=== PATIENT | female | born 1945 | race Caucasian/White ===

== ENCOUNTER 2019-01-13 13:42 | Emergency (ER) | payer OTHER ==
--- NOTE | 2019-01-13 13:49 | EDPHY ---
HPI/HX/ROS/PE/MDM <Eduardo Yung - Last Filed: 01/13/19 16:03> - Data Points Imaging: I viewed and interpreted images myself <Connie Joya - Last Filed: 01/13/19 16:27> Narrative: CHIEF COMPLAINT: Right hip pain HPI: This patient is a 73 year old female with history of [place]'s disease, diabetes , hypothyroidism, and hyperlipidemia. She presents today with atraumatic right hip pain which began on Saturday afternoon. This is exacerbated by movement and she has difficultly with activities of daily living including driving and walking. She has tried ibuprofen and Aleve without relief. The pain is somewhat relieved when she is lying down. She denies any recent falls or trauma. She notes that she has history of a pulled hamstring which presented with a somewhat similar, but less severe, discomfort. She denies any back pain. No numbness, paresthesias, weakness, or swelling in her extremities. She does take chronic steroids for her [place]'s disease but denies any recent changes in her medication regimen. No fever, chest pain, shortness of breath, or other associated symptoms. REVIEW OF SYSTEMS: A comprehensive 10 system review of systems is otherwise negative aside from elements mentioned in the history of present illness and medical decision making. PMH: DM type II. Cam's disease. Hypothyroid. Hyperlipidemia. SOCIAL HISTORY: Retired. Lives in [place]. Does not abuse tobacco, drugs, or alcohol. PHYSICAL EXAM: General:Patient is alert, in no acute distress. ENT:Eyes are normal to inspection. ENT inspection normal. Neck: Normal inspection. Full range of motion. Respiratory:No respiratory distress. Breath sounds normal bilaterally. Cardiovascular: Regular rate and rhythm. Strong peripheral pulses. Normal cap refill. Abdomen:The abdomen is nontender to palpation. There are no peritoneal signs. There are normal bowel sounds. Back: Normal to inspection. Tenderness over right buttock region. Skin: Normal color. No rash. Warm and dry. Extremities: Normal appearance. Full range of motion. Neuro: Oriented x3. Normal motor function. Normal sensory function. (Eduardo Yung) ED Course: This 73 y/o female presents with atraumatic right hip pain. She has reproducible discomfort over the left buttock area. Plan for x-ray of lumbar spine and right hip/femur. Plan for labs including CBC, chemistries. (Eduardo Yung) 3:30 p.m.: I assumed care of this patient at shift change. She presents with right buttock pain, atraumatic. X-rays are unremarkable. She has been given Vicodin and Phenergan. The plan is for recheck after medications and discharge her home if she is feeling better. 4:15 p.m.: Feels better, daughter is present, would like to go home. On exam, she has point tenderness over the right ischial tuberosity. This is in a similar location to a previous injury, according to the patient. Patient reassured there is a possibility of sciatica also discussed with the patient, as she has pain radiating down the right lower extremity at times. Right straight leg raise is negative and no lumbar tenderness. Ambulates with a steady gait. Patient requests tramadol. Rx written. (Connie Joya) - Data Points Imaging Results: Imaging Impressions Lumbar Spine X-Ray 01/13/19 14:15 Impression: 1. No acute compression fracture. 2. Grade 1 spondylolisthesis and degenerative disk disease at L3-L4 and L4-L5. Laboratory Results: Laboratory Results 01/13/19 13:50 01/13/19 13:50 01/13/19 01/13/19 13:50 13:50 WBC 12.59 10^3/uL H 10^3/uL (3.80-9.50) RBC 5.68 10^6/uL H 10^6/uL (4.18-5.33) Hgb 16.9 g/dL H g/dL (12.6-16.3) Hct 52.3 % H % (38.0-47.0) MCV 92.1 fL fL (81.5-99.8) MCH 29.8 pg pg (27.9-34.1) MCHC 32.3 g/dL L g/dL (32.4-36.7) RDW 14.8 % % (11.5-15.2) Plt Count 349 10^3/uL 10^3/uL (150-400) MPV 10.1 fL fL (8.7-11.7) Neut % (Auto) 71.1 % % (39.3-74.2) Lymph % (Auto) 17.4 % % (15.0-45.0) Mcleod % (Auto) 9.0 % % (4.5-13.0) Eos % (Auto) 1.3 % % (0.6-7.6) Baso % (Auto) 0.6 % % (0.3-1.7) Nucleat RBC Rel Count 0.0 % % (0.0-0.2) Absolute Neuts (auto) 8.96 10^3/uL H 10^3/uL (1.70-6.50) Absolute Lymphs (auto) 2.19 10^3/uL 10^3/uL (1.00-3.00) Absolute Monos (auto) 1.13 10^3/uL H 10^3/uL (0.30-0.80) Absolute Eos (auto) 0.16 10^3/uL 10^3/uL (0.03-0.40) Absolute Basos (auto) 0.08 10^3/uL 10^3/uL (0.02-0.10) Absolute Nucleated RBC 0.00 10^3/uL 10^3/uL (0-0.01) Immature Gran % 0.6 % % (0.0-1.1) Immature Gran # 0.07 10^3/uL 10^3/uL (0.00-0.10) Sodium 140 mEq/L mEq/L (135-145) Potassium 4.3 mEq/L mEq/L (3.5-5.2) Chloride 103 mEq/L mEq/L (97-110) Carbon Dioxide 23 mEq/l mEq/l (22-31) Anion Gap 14 mEq/L mEq/L (6-14) BUN 19 mg/dL mg/dL (7-23) Creatinine 0.9 mg/dL mg/dL (0.6-1.0) Estimated GFR > 60 Glucose 109 mg/dL H mg/dL (70-100) Calcium 10.0 mg/dL mg/dL (8.5-10.4) Specimen Hemolysis 125 Medications Given: Discontinued Medications Hydrocodone Bitart/Acetaminophen (Stewart 5/325) 1 tab PO EDNOW ONE Stop: 01/13/19 15:24 Last Admin: 01/13/19 15:39 Dose: 1 tab Promethazine HCl (Phenergan) 25 mg PO EDNOW ONE Stop: 01/13/19 15:24 Last Admin: 01/13/19 15:39 Dose: 25 mg General <Eduardo Yung - Last Filed: 01/13/19 16:03> <Connie Joya - Last Filed: 01/13/19 16:27> Time Seen by Provider: 01/13/19 13:44 Initial Vital Signs: Initial Vital Signs Temperature (C) 36.7 C 01/13/19 13:49 Heart Rate 90 01/13/19 13:49 Respiratory Rate 16 01/13/19 13:49 Blood Pressure 141/74 H 01/13/19 13:49 O2 Sat (%) 93 01/13/19 13:49 O2 Delivery Mode Room Air Allergies/Adverse Reactions: codeine [Codeine] Allergy (Verified 01/13/19 13:49) GI oxycodone HCl [From OxyContin] Allergy (Verified 01/13/19 13:49) Vomiting sulfamethoxazole [From Bactrim] Allergy (Verified 01/13/19 13:49) FEELS WOOZY tobramycin Allergy (Verified 01/13/19 13:49) Rash trimethoprim [From Bactrim] Allergy (Verified 01/13/19 13:49) FEELS WOOZY ENVIRONMENTAL Allergy (Mild, Uncoded 09/25/13 15:07) NASAL CONGESTION/WATERY EYES Home Medications: Medication Instructions Recorded Aspirin [Aspirin 81mg (OTC)] 162 mg PO DAILY 02/16/13 Atorvastatin Calcium [Lipitor] 40 mg PO HS 02/16/13 Estradiol [Estradiol 1 MG (RX)] 1 mg PO Q2D@2100 02/16/13 Fludrocortisone Acetate [Florinef 0.1 mg PO DAILY 02/16/13 0.1 MG (RX)] LORazepam [Ativan 1 mg (RX)] 1 - 2 mg PO HS PRN 02/16/13 Levothyroxine [Synthroid 100 mcg 100 mcg PO HS 02/16/13 (RX)] Vits A,C,E/Lutein/Minerals 1 each PO DAILY 02/16/13 [Ocuvite Tablet] metFORMIN HCL [Glucophage 500 mg 500 mg PO BIDMEAL 02/16/13 (RX)] Hydrocortisone Sod Succinate 100 mg IM DAILY PRN 02/17/13 [soluCORTEF] Hydrocortisone [Cortef 10 mg (RX)] 10 mg PO 08,12 02/17/13 Estradiol [Estradiol 1 MG (RX)] 0.5 mg PO Q2D@2100 02/23/13 Herbals/Supplements -Info Only 1 each PO AD 09/24/13 Loratadine [Claritin 10 mg] 10 mg PO HS 09/25/13 Promethazine HCl [Phenergan 25mg 25 mg PO Q6 PRN #20 tab 07/22/14 (RX)] Hydrocortisone [Cortef] 5 mg PO DAILY@16 02/16/15 Ascorbic Acid [Vitamin C] 500 mg PO DAILY 02/22/15 Ibuprofen [Motrin] 200 - 400 mg PO BID PRN 02/22/15 Multivitamins [Tab-A-Ewelina] 1 each PO DAILY 02/22/15 traMADol [Ultram 50 mg (*)] 50 mg PO Q4 PRN #10 tab 01/13/19 Departure <Eduardo Yung - Last Filed: 01/13/19 16:03> <Connie Joya - Last Filed: 01/13/19 16:27> - Departure Disposition: Home, Routine, Self-Care Clinical Impression: Sciatica Qualifiers: Laterality: right Qualified Code(s): M54.31 - Sciatica, right side Condition: Good Instructions: Sciatica (ED) Additional Instructions: Ibuprofen 600 mg 3 times daily while the pain persists. Take tramadol as needed for pain. Follow-up with your primary doctor and/or floor specialist within one week. Return to the ED for worsening pain, fever, inability to walk or other concerns. Referrals: Elsa Cates MD [Medical Doctor] - As per Instructions Kailyn Gonzalez MD [Medical Doctor] - As per Instructions Prescriptions: traMADol [Ultram 50 mg (*)] 50 mg PO Q4 PRN #10 tab PRN Reason: pain Report Scribed for: Eduardo Yung Report Scribed by: Bridgett Hubbard Date of Report: 01/13/19 Time of Report: 15:14 Physician Review and Approval Statement: Portions of this note were transcribed by an ED scribe. I personally performed the history, physical exam, and medical decision making; and confirm the accuracy of the information in the transcribed note. <Eduardo Yung - Last Filed: 01/13/19 16:03>
[2019-01-13] MEDS ORDERED: PROMETHAZINE HCL 25 MG TAB PO ONE (15:23)
[2019-01-13] MEDS ORDERED: HYDROCODONE/APAP 5/325 TAB PO ONE (15:23)
[2019-01-13 16:17] LABS: PLATELET COUNT 349 10^3/uL (150-400)
[2019-01-13 16:22] VITALS: BP 139/70
== END 2019-01-13 16:40 | disposition home or self-care (01) ==
LOC: EDUNIT#
DX: M54.31 Sciatica, right side (principal); E27.1 Primary adrenocortical insufficiency; E03.9 Hypothyroidism, unspecified; E78.5 Hyperlipidemia, unspecified

== ENCOUNTER 2019-02-25 07:05 | Inpatient (IN) | payer OTHER ==
[2019-02-25] MEDS ORDERED: ACETAMINOPHEN 500 MG TAB PO ONE (07:22)
[2019-02-25] MEDS ORDERED: ceFAZolin 2 GM/DEXTROSE 100 ML IV ONE (07:22)
[2019-02-25] MEDS ORDERED: GABAPENTIN 300 MG CAP PO ONE (07:22)
[2019-02-25] MEDS ORDERED: LR 1,000 ML IV ONE (07:24)
[2019-02-25] MEDS ORDERED: GENTAMICIN SULFATE 80 MG/2 ML VIAL ONE (08:10)
[2019-02-25] MEDS ORDERED: BUPIVACAINE/EPI 0.25% 30 ML SDV ONE (08:10)
[2019-02-25] MEDS ORDERED: THROMBIN (BOVINE) 20,000 UNIT VIAL TP ONE (08:10)
[2019-02-25] MEDS ORDERED: CHLORHEXIDINE GLUC HIBICLENS 118 ML BTL TP ONE (08:10)
--- NOTE | 2019-02-25 08:13 | PDANEPAE ---
ANE Past Medical History - Cardiovascular History Hx Hypertension: No Hx Arrhythmias: No Hx Chest Pain: No Hx Coronary Artery / Peripheral Vascular Disease: Yes Hx CHF / Valvular Disease: No Hx Palpitations: No Cardiovascular History Comment: Family HX severe CAD. - Pulmonary History Hx COPD: No Hx Asthma/Reactive Airway Disease: No Hx Recent Upper Respiratory Infection: No Hx Oxygen in Use at Home: No Hx Sleep Apnea: No Sleep Apnea Screening Result - Last Documented: Negative - Neurologic History Hx Cerebrovascular Accident: No Hx Seizures: No Hx Dementia: No - Endocrine History Hx Diabetes: Yes Endocrine History Comment: Type 2-metformin. Hypothyroid, HX of Graves disease. Cecil's disease. - Renal History Hx Renal Disorders: No Renal History Comment: Chronic UTI'S, last 12/25. - Liver History Hx Hepatic Disorders: No - Neurological & Psychiatric Hx Hx Neurological and Psychiatric Disorders: Yes Neurological / Psychiatric History Comment: Situational depression 11/25-since resolved. back causes foot drop - Cancer History Hx Cancer: Yes Cancer History Comment: Squamous leg-removed. Basal face-removed. - Congenital Disorder History Hx Congenital Disorders: Yes Congenital History Comment: See endocrine HX. Spina bifida. 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 Bursitis both hips, steroid inj in past. - Chronic Pain History Chronic Pain: Yes (bursitis both hips.) - Surgical History Prior Surgeries: T&A as child. 1959-partial thyroidectomy. 1981-total hyst. 1969 -L breast lumpectomy; unsuccesfull bilateral breast reconstruction twice. 1984- original breast implants removed and new ones placed.2011-GB removed. 2012- bilateral breast reconstruction. abdominoplasty ANE Review of Systems Review of Systems: - Exercise capacity METS (RN): 4 METS ANE Patient History - Allergies Allergies/Adverse Reactions: codeine [Codeine] Allergy (Verified 01/13/19 13:49) GI oxycodone HCl [From OxyContin] Allergy (Verified 01/13/19 13:49) Vomiting sulfamethoxazole [From Bactrim] Allergy (Verified 01/13/19 13:49) FEELS WOOZY tobramycin Allergy (Verified 01/13/19 13:49) Rash trimethoprim [From Bactrim] Allergy (Verified 01/13/19 13:49) FEELS WOOZY ENVIRONMENTAL Allergy (Mild, Uncoded 09/25/13 15:07) NASAL CONGESTION/WATERY EYES - Home Medications Home Medications: Aspirin [Aspirin 81mg (OTC)] 162 mg PO HS 02/16/13 [Last Taken 02/23/15] Atorvastatin Calcium [Lipitor] 80 mg PO HS 02/16/13 [Last Taken 03/01/15 20:00] Fludrocortisone Acetate [Florinef 0.1 MG (RX)] 0.1 mg PO DAILY 02/16/13 [Last Taken 03/02/15 06:15] LORazepam [Ativan 1 mg (RX)] 1 - 2 mg PO HS PRN 02/16/13 [Last Taken 03/01/15 23 :00] metFORMIN HCL [Glucophage 500 mg (RX)] 500 mg PO BIDMEAL 02/16/13 [Last Taken 20:00] Hydrocortisone Sod Succinate [soluCORTEF] 100 mg IM DAILY PRN 02/17/13 [Last Taken 09/27/13] Hydrocortisone [Cortef 10 mg (RX)] 10 mg PO TIDMEAL 02/17/13 [Last Taken 06:15] Estradiol [Estradiol 1 MG (RX)] 0.5 mg PO HS 02/23/13 [Last Taken 03/01/15 20:00 ] Loratadine [Claritin 10 mg] 10 mg PO DAILY 09/25/13 [Last Taken 02/16/15] Hydrocortisone [Cortef] 10 mg PO DAILY PRN 02/16/15 [Last Taken 02/28/15 16:00] Ascorbic Acid [Vitamin C 500 mg (*)] 1,000 mg PO DAILY 02/11/19 [Last Taken Unknown] C/E/Zn/Cu/OM3/DHA/EPA/LUT/ZEAX [Preservision Areds 2 Softgel] 1 each PO BID 01/27 [Last Taken Unknown] Gabapentin [Neurontin 300 MG (*)] 300 mg PO BID 02/11/19 [Last Taken Unknown] Levothyroxine [Synthroid 112 mcg (*)] 112 mcg PO HS 02/11/19 [Last Taken Unknown ] Meloxicam 7.5 - 15 mg PO DAILY 02/11/19 [Last Taken Unknown] Multivitamins [Multivitamin (*)] 1 each PO DAILY 02/11/19 [Last Taken Unknown] OLANZapine [Zyprexa] 5 mg PO HS 02/11/19 [Last Taken Unknown] [place]-3 Fatty Acids [Fish Oil 1000 mg (*)] 1,000 mg PO DAILY 02/11/19 [Last Taken Unknown] buPROPion XL [Wellbutrin Xl] 300 mg PO DAILY 02/11/19 [Last Taken Unknown] - Smoking Hx Smoking Status: Never smoked - Family Anes Hx Family Hx Anesthesia Complications: none ANE Labs/Vital Signs - Vital Signs Vital Signs: reviewed preoperatively; see RN documention for details Height: 162.56 cm Weight: 74.843 kg ANE Physical Exam - Airway Neck exam: decreased ROM Mallampati Score: Class 2 Mouth exam: normal dental/mouth exam - Pulmonary Pulmonary: clear to auscultation - Cardiovascular Cardiovascular: regular rate and rhythym - ASA Status ASA Status: III ANE Anesthesia Plan Anesthesia Plan: general endotracheal anesthesia Lines/Monitors: arterial line
[2019-02-25] MEDS ORDERED: PROPOFOL 200 MG/20 ML VIAL ONE (08:18)
[2019-02-25] MEDS ORDERED: PROPOFOL/EMULSION 500 MG/50 ML BOTTLE IV ONE ×2 (08:18→13:37)
[2019-02-25] MEDS ORDERED: REMIFENTANIL HCL 1 MG VIAL ONE ×2 (08:20→13:37)
[2019-02-25] MEDS ORDERED: fentaNYL 100 MCG/2 ML INJ ONE ×2 (08:20→14:56)
[2019-02-25 08:21] LABS: PLATELET COUNT 283 10^3/uL (150-400)
[2019-02-25] MEDS ORDERED: ROCURONIUM 50 MG/5 ML VIAL ONE (08:23)
[2019-02-25] MEDS ORDERED: PHENYLEPHRINE 10 MG/ML SDV ONE (08:25)
[2019-02-25] MEDS ORDERED: PETROLAT,WHT/MIN OIL/SOD CHL 3.5 GM OPHT.OINT ONE (08:28)
[2019-02-25 08:33] LABS: INR 1.14 (0.83-1.16); PROTIME(PATIENT) 14.1 SEC (12.0-15.0)
[2019-02-25] MEDS ORDERED: RANITIDINE 50 MG/2 ML VIAL ONE ×2 (09:05→11:26)
[2019-02-25] MEDS ORDERED: GLYCOPYRROLATE 0.2 MG/1 ML VIAL ONE (09:05)
--- NOTE | 2019-02-25 09:21 | PDHPUP ---
History & Physical Update H&P update statement: This history and physical update is based on an assessment of the patient which was completed after admission or registration (within 24 hours), but prior to the surgery/procedure. H&P update: H&P reviewed & patient examined, no change in patient's condition since H&P completed
[2019-02-25] MEDS ORDERED: HYDROCORTISONE 100 MG/2 ML VIAL ONE (10:09)
[2019-02-25] MEDS ORDERED: PHENYLEPHRINE HCL 100 MCG/ML SYR ONE (10:11)
[2019-02-25] MEDS ORDERED: ONDANSETRON 4 MG/2 ML VIAL IVP PRN ×2 (10:48→15:26)
[2019-02-25] MEDS ORDERED: HYDROmorphONE/DILAUDID 1 MG/ML INJ IVP PRN ×2 (10:48→15:26)
[2019-02-25] MEDS ORDERED: BISACODYL 10 MG SUPP PR PRN (10:48)
[2019-02-25] MEDS ORDERED: diphenhydrAMINE 25 MG CAP PO PRN (10:48)
[2019-02-25] MEDS ORDERED: POLYETHYLENE GLYCOL 3350 17 GM PKT PO PRN (10:48)
[2019-02-25] MEDS ORDERED: MAGNESIUM HYDROXIDE 30 ML UDCUP PO PRN (10:48)
[2019-02-25] MEDS ORDERED: LACTULOSE 20 GM/30 ML UDCUP PO PRN (10:48)
[2019-02-25] MEDS ORDERED: HYDROmorphONE/DILAUDID 2 MG TAB PO PRN (10:52)
[2019-02-25] MEDS ORDERED: NS 1,000 ML IV SCH (11:00)
--- NOTE | 2019-02-25 13:20 | PDMN ---
Medical Necessity Medical necessity: [facility] IP only surgery; cpt 93440 L3/5 TLIF
[2019-02-25] MEDS ORDERED: ceFAZolin 1 GM VIAL ONE ×2 (14:03→14:04)
[2019-02-25] MEDS ORDERED: NALOXONE HCL 0.4 MG/ML INJ IVP PRN (15:26)
[2019-02-25] MEDS ORDERED: DEXAMETHASONE 4 MG/ML VIAL IVP PRN (15:26)
[2019-02-25] MEDS ORDERED: LABETALOL HCL 5 MG/ML 20 ML MDV IVP PRN (15:26)
[2019-02-25] MEDS ORDERED: ALBUTEROL 3 ML DEYVIAL IH PRN (15:26)
[2019-02-25] MEDS ORDERED: PROMETHAZINE HCL 25 MG/ML INJ IVP PRN (15:26)
[2019-02-25] MEDS ORDERED: LR 500 ML IV PRN (15:26)
[2019-02-25] MEDS ORDERED: fentaNYL 100 MCG/2 ML INJ IVP PRN (15:26)
--- NOTE | 2019-02-25 15:27 | POSTANESTH ---
Post Anesthetic Evaluation Cardiovascular Status: Normal, Stable Respiratory Status: Normal, Stable Level of Consciousness/Mental Status: Mildly Sleepy, Arousable Pain Control: Adequate, Prn Tx Ordered Nausea/Vomiting Control: Adequate, Prn Tx Ordered Complications Possibly Related to Anesthesia: None Noted
--- NOTE | 2019-02-25 15:32 | POSTOPPROG ---
Post Op Note Date of Operation: 02/25/19 Surgeon: Beverly Lynn Foxing Cutting Machine Operator: Missy Romano PA-C Anesthesia: GET(General Endotracheal) Pre-op Diagnosis: Lumbar stenosis Post-op Diagnosis: Lumbar stenosis Procedure: Transforaminal lumbar interbody fusion at L3-L5 Inf/Abcess present in the surg proc area at time of surgery?: No Depth: Deep Incisional (Fascial) EBL: 100-500 Drains: John Hamilton Plan Plan: 73 yo female s/p TLIF at L3-L5 - neuro checks - pain control - SARI drain x 1 - wear brace when out of bed - postop L-spine x-rays tomorrow - PT/OT - [place]'s disease, will double home dose of solu-cortef for the next 3 days 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 Alert Following commands, NEGRO Right DF weakness 4/5
--- NOTE | 2019-02-25 15:51 | GOP ---
[f rep st] OPERATIVE REPORT DATE OF OPERATION: 02/25/2019 SURGEON: Beverly Lynn DO NEUROSURGEON: Beverly Lynn DO [employer]EMAN: BULL Gomes PREOPERATIVE DIAGNOSIS: 1. Spondylolisthesis. 2. Stenosis. 3. Spondylosis. 4. Herniated nucleus pulposus. 5. Footdrop. 6. Radiculopathy. 7. Myelopathy. POSTOPERATIVE DIAGNOSIS: 1. Spondylolisthesis. 2. Stenosis. 3. Spondylosis. 4. Herniated nucleus pulposus. 5. Footdrop. 6. Radiculopathy. 7. Myelopathy. PROCEDURE PERFORMED: L3-4, L4-5 right-sided transforaminal lumbar interbody fusion with Betabrandtronic So abby 5.5 screw system and Betabrandtronic Elevate 9 x 13 x 23 mm Elevate graft at L3-4 and 7 x 11 x 23 mm E levate graft L4-5, autograft allograft, BMP, microscope, neuro monitoring, stealth stereotaxis. FINDINGS: SPECIMENS: None. ESTIMATED BLOOD LOSS: 100 mL. INDICATIONS: This is a 73-year-old female with a footdrop secondary to a free disk fragment and radha re stenosis at L3-4, L4-5 with spondylolisthesis at L4-5. Given the spondylolisthesis, TLIF was elec elke to move forward with surgical intervention. DESCRIPTION OF PROCEDURE: She was identified, consented. Sites were marked. Brought to the operati ng room, anesthetized under general endotracheal anesthesia, rolled onto the John table. All pres sure points were appropriately padded. She was prepped and draped in the usual sterile fashion. O a rm was draped and brought in and the incision was marked with 18-gauge spinal needle. The incision w as anesthetized with 0.5% Marcaine with epinephrine 1% lidocaine in a 50:50 mixture. Incision was ma de with a 10 blade. Hemostasis was obtained with Bovie and bipolar cautery dissecting down onto the laminae of L3, L4, and L5 and around the facets of L3-4, and L4-5 using the Bovie and bipolar cautery . We then took an x-ray, verified we were in appropriate position. Placed the stealth stereotactic arm and performed a stereotactic spin. On the left at L5, we created a stereotactic starting point w ith the awl and then used the stereotactically to tap and measure a 6.5 x 45 mm screw. Ch ecked the screw hole with a ball-tipped probe and then placed stereotactically a 6.5 x 45 mm screw. We performed the same procedure stereotactically at L4, placing a 6.5 x 50 mm screw at L3, placing a 5.5 x 45 mm screw as the pedicles were smaller at L3. Screws stimmed about 20. We then went down to L5 on the right with the same procedure, stereotactically placed a 6.5 x 45 mm screw at L4, 6.5 x 55 mm screw at L3, a 5.5 x 50 mm screw. We then stimmed those screws; those screws all stimmed above 2 0. We took an x-ray. I was not terribly clear about the left L5 screw, so I removed the screw with a naked newspaper delivery driver and palpated the entire screw hole and it was solid with bone all the way around. Rep laced the screw stereotactically, took another x-ray and then performed a stereotactic spin. All scr ews were in the appropriate position. The left L5 was slightly deep, so we backed it out approximate ly 1 turn. I then used the Stereotaxis to identify the facet joints on the left side as she has righ t-sided footdrop and decorticate and drill out the soft tissue in the facets of L3-4 and L4-5 on the left side. We then measured 60 mm rods, placed them bilaterally, placing caps and placing the patien t under slight distraction, locked them into place, leaving the aba to the appropriate length locking it down with a torque wrench. I then used a Leksell to remove the spinous process, interspinous lig aments at L3-4, L4-5, and then brought in the microscope. Using a high-speed drill, created a payton ctomy and a complete facetectomy of L4-5 and L3-4 on the right. There was significant scarring of th e ligament to the dura, which was gently teased off with the angled ball-tip probe. Once we had full y decompressed the nerve root, pedicle to pedicle, at L3-4 and L4-5, we were able to retract at L3-4. The thecal sac medially opening the disk space at L3-4 with an 11 blade, and then using sequential aureliano to remove disk and cartilaginous endplate. We then prepared the endplates with a ring curett e and then measured a 9 x 13 x 23 mm Elevate cage, packed BMP in the patient's own bone anterior BMP and the patient's own bone into the graft and tamped the graft into place, verifying it was in the ap propriate position in the AP and lateral plane, fully deployed the graft. We then moved down to the L4-5, retracted the thecal sac medially. There was a very large disk herniation, which was freed up and completely removed using micro pituitary and then again repeated the same procedure entering the disk space with an 11 blade and using sequential aureliano to remove the disk and cartilaginous endplat e and superior and inferior endplates, preparing the endplates with a ring curette and then placing t he BMP and the patient's own bone anteriorly BMP and the patient's own bone into the Elevate graft an d measured a 7 x 11 x 23 mm Elevate graft, tamped into place with an excellent position in the AP and lateral planes, fully to final x-ray. Copiously irrigated with over 2 L of gentamicin-in fused saline, packed BMP and the patient's own bone into the facet joints on the left and some Progen ix Plus out bilaterally in the lateral region. We then trocared a drain out inferiorly and placed it in the subfascial space. Closed the fascia with 0 Vicryl pop-offs, subcutaneous layer of 2 Vicryl p op-offs, cutaneous layer of 3-0 Vicryl pop-offs. The skin was closed with a 4-0 running Monocryl and Steri-Strips. Wound was dressed with gauze and a Tegaderm drain was sutured with 2-0 Vicryl pop-off placed to bulb suction. Patient tolerated procedure well. There were no complications. FLUIDS: 700 mL of crystalloid. URINE OUTPUT: Not recorded. DRAINS: One SARI in the subfascial space to bulb suction. COMPLICATIONS: None. /[id number]/MODL
[2019-02-25] MEDS: ONDANSETRON DISINTEGRATING 4 MG TAB PO PRN ×2 (16:43→23:32)
[2019-02-25] MEDS: ACETAMINOPHEN 500 MG TAB PO SCH ×2 (16:44→21:49)
[2019-02-25] MEDS: METHOCARBAMOL 750 MG TAB PO PRN ×2 (17:51→23:32)
[2019-02-25] MEDS: ceFAZolin 2 GM/DEXTROSE 100 ML IV SCH (20:10)
[2019-02-25] MEDS: OLANZapine 5 MG TAB PO SCH (20:15)
[2019-02-25] MEDS: ATORVASTATIN CALCIUM 40 MG TAB PO SCH (20:15)
[2019-02-25] MEDS: ESTRADIOL 1 MG TAB PO SCH (20:15)
[2019-02-25] MEDS: GABAPENTIN 300 MG CAP PO SCH (20:15)
[2019-02-25] MEDS: LEVOTHYROXINE 112 MCG TAB PO SCH (20:15)
[2019-02-25] MEDS: SENNOSIDES/DOCUSATE SODIUM TAB PO SCH (20:16)
[2019-02-25] MEDS: LORazepam 1 MG TAB PO PRN (21:49)
[2019-02-26] MEDS: ceFAZolin 2 GM/DEXTROSE 100 ML IV SCH (03:49)
[2019-02-26] MEDS: METHOCARBAMOL 750 MG TAB PO PRN (03:53)
[2019-02-26] MEDS: ONDANSETRON DISINTEGRATING 4 MG TAB PO PRN ×2 (03:54→10:27)
[2019-02-26 05:33] LABS: PLATELET COUNT 251 10^3/uL (150-400)
[2019-02-26] MEDS: ACETAMINOPHEN 500 MG TAB PO SCH ×3 (06:38→23:06)
--- NOTE | 2019-02-26 08:02 | NEUSURGPN ---
Assessment/Plan: 73 yo female s/p TLIF at L3-L5 POD1 - pain control - Continue SARI drain x 1 - wear brace when out of bed - postop L-spine x-rays pending - PT/OT - [place]'s disease, will double home dose of solu-cortef for the next 3 days per her magazine hand (20 mg po TID) - SCDs/TEDs, Lovenox to start POD1 - Discussed with Dr. Lynn Subjective: low back pain, feels like foot is stronger than presurgery. Objective: NAD A&Ox3 MAE4 Right DF weakness 4+/5 SARI drain serosanguineous Dressing c/d/iI Catheter Insertion Date: 02/25/19 - Physician Discussed Patient with : Shane Neurosurgery Physical Exam - Vitals, I&O, Labs I and O 02/25/19 02/26/19 02/27/19 05:59 05:59 05:59 Intake Total 1525 Output Total 1925 Balance -400 Weight 74.843 kg Intake: Oral (ml) 725 IV Intake (ml) 800 Output: Urine (ml) 1700 Catheter 1700 Estimated Blood Loss (ml) 150 Emesis (ml) 0 SARI Drain Output (ml) 75 #1 Back John Hamilton 75 Other: Intake Quantity Yes Sufficient Vital Signs Temp Pulse Resp BP Pulse Ox 37.7 C 97 16 111/49 L 88 L 02/26/19 07:04 02/26/19 07:04 02/26/19 07:04 02/26/19 07:04 02/26/19 07:04 Laboratory Results 02/26/19 04:50 02/26/19 04:50 ICD10 Worksheet Patient Problems: Problems Problem Status Onset Chronic cholecystitis without calculus Acute
[2019-02-26] MEDS: buPROPion XL 150 MG TAB PO SCH (08:27)
[2019-02-26] MEDS: ASCORBIC ACID 500 MG TAB PO SCH (08:27)
[2019-02-26] MEDS: CETIRIZINE 10 MG TAB PO SCH ×2 (08:27→08:31)
[2019-02-26] MEDS: ENOXAPARIN 40 MG/0.4 ML SYR SC SCH ×2 (08:27→17:49)
[2019-02-26] MEDS: HYDROCORTISONE 10 MG TAB PO SCH ×3 (08:27→18:04)
[2019-02-26] MEDS: metFORMIN HCL 500 MG TAB PO SCH ×3 (08:27→18:04)
[2019-02-26] MEDS: MULTIVITAMINS 1 EACH TAB PO SCH (08:27)
[2019-02-26] MEDS: GABAPENTIN 300 MG CAP PO SCH ×2 (08:28→20:36)
[2019-02-26] MEDS: SENNOSIDES/DOCUSATE SODIUM TAB PO SCH ×2 (08:28→20:34)
[2019-02-26] MEDS: FLUDROCORTISONE ACETATE 0.1 MG TAB PO SCH (08:28)
--- NOTE | 2019-02-26 13:28 | ASMTCMCOM ---
CM Note CM Note Notes: Patient is POD #1 TLFI L3-L5. Patient lives alone and has many stairs. She has requested SNF referral. PT recommends SNF. Referral sent to [facility] per her request. Case Management will follow. Date Signed: 02/26/2019 01:27 PM Electronically Signed By:Angelina Manzanares RN
[2019-02-26] MEDS ORDERED: NS 1,000 ML IV SCH (15:45)
--- NOTE | 2019-02-26 15:46 | PDHOSCONS ---
History and Physical - Chief Complaint Somnolence - History of Present Illness Hospital Medicine has been asked by nursing staff and neurosurgery to consult the patient due to her somnolence she is experiencing today. She underwent a TLIF L3-L5 yesterday with estimated blood loss 100 cc, SARI drain present; this was done under general anesthesia and the only medication that she has received that she does not normally take at home is Robaxin which she received 3 doses since surgery last 1 being early this morning. This is my 1st time evaluating the patient, my first-time looking at her past medical records which includes medical history of Randall's disease, hypothyroidism, and diabetes type 2. She was seen in her bed lying supine sleeping however easy to arouse. She is alert and oriented x3. She is responding to my questions appropriately. She reports attempting to work with physical therapy today however felt weak, lightheaded, and nauseous. While conversing with her she was able to keep her eyes open and and was in no respiratory distress; able to complete her sentences in full however did appear to be groggy. I questioned her psychiatric medications noting I do not see any psychiatric history and she reports a year ago her older daughter ; she found her daughter in her bed and since that time has suffered from PTSD and depression. She is prescribed the psychiatric medications by Dr. Kailyn Willis in [place] and her primary care doctor is Dr. Patricia Sofia. She denies the following: Chest pain, palpitations, vomiting, fever, or chills. History Information - Allergies/Home Medication List Allergies/Adverse Reactions: codeine [Codeine] Allergy (Verified 01/13/19 13:49) GI oxycodone HCl [From OxyContin] Allergy (Verified 01/13/19 13:49) Vomiting sulfamethoxazole [From Bactrim] Allergy (Verified 01/13/19 13:49) FEELS WOOZY tobramycin Allergy (Verified 01/13/19 13:49) Rash trimethoprim [From Bactrim] Allergy (Verified 01/13/19 13:49) FEELS WOOZY ENVIRONMENTAL Allergy (Mild, Uncoded 09/25/13 15:07) NASAL CONGESTION/WATERY EYES Home Medications: Aspirin [Aspirin 81mg (OTC)] 162 mg PO HS 02/16/13 [Last Taken 02/23/15] Atorvastatin Calcium [Lipitor] 80 mg PO HS 02/16/13 [Last Taken 03/01/15 20:00] Fludrocortisone Acetate [Florinef 0.1 MG (RX)] 0.1 mg PO DAILY 02/16/13 [Last Taken 03/02/15 06:15] LORazepam [Ativan 1 mg (RX)] 1 - 2 mg PO HS PRN 02/16/13 [Last Taken 03/01/15 23 :00] metFORMIN HCL [Glucophage 500 mg (RX)] 500 mg PO BIDMEAL 02/16/13 [Last Taken 20:00] Hydrocortisone Sod Succinate [soluCORTEF] 100 mg IM DAILY PRN 02/17/13 [Last Taken 09/27/13] Hydrocortisone [Cortef 10 mg (RX)] 10 mg PO TIDMEAL 02/17/13 [Last Taken 06:15] Estradiol [Estradiol 1 MG (RX)] 0.5 mg PO HS 02/23/13 [Last Taken 03/01/15 20:00 ] Loratadine [Claritin 10 mg] 10 mg PO DAILY 09/25/13 [Last Taken 02/16/15] Hydrocortisone [Cortef] 10 mg PO DAILY PRN 02/16/15 [Last Taken 02/28/15 16:00] Ascorbic Acid [Vitamin C 500 mg (*)] 1,000 mg PO DAILY 02/11/19 [Last Taken Unknown] C/E/Zn/Cu/OM3/DHA/EPA/LUT/ZEAX [Preservision Areds 2 Softgel] 1 each PO BID 01/27 [Last Taken Unknown] Gabapentin [Neurontin 300 MG (*)] 300 mg PO BID 02/11/19 [Last Taken Unknown] Levothyroxine [Synthroid 112 mcg (*)] 112 mcg PO HS 02/11/19 [Last Taken Unknown ] Meloxicam 7.5 - 15 mg PO DAILY 02/11/19 [Last Taken Unknown] Multivitamins [Multivitamin (*)] 1 each PO DAILY 02/11/19 [Last Taken Unknown] OLANZapine [Zyprexa] 5 mg PO HS 02/11/19 [Last Taken Unknown] [place]-3 Fatty Acids [Fish Oil 1000 mg (*)] 1,000 mg PO DAILY 02/11/19 [Last Taken Unknown] buPROPion XL [Wellbutrin Xl] 300 mg PO DAILY 02/11/19 [Last Taken Unknown] I have personally reviewed and updated: family history, medical history, social history, surgical history Past Medical History: Cam disease, spondylolisthesis, footdrop, critically 0 up with the, hypothyroidism, diabetes type 2 with well controlled blood sugars last A1c was 5.7 in November 2018, and hyperlipidemia - Surgical History Reports: spinal surgery Additional surgical history: Cholecystectomy, hysterectomy, total thyroidectomy - Social History Smoking Status: Never smoked Alcohol Use: None Drug Use: None Review of Systems Review of Systems: ROS: 10pt was reviewed & negative except for what was stated in HPI & below Physical Exam Physical Exam: Lab data and imaging were reviewed. Next White blood count: 12.77 Hemoglobin hematocrit: 12.7 and 39.1 Platelet count: 251 Sodium: 136 Potassium: 3.8 Chloride: 102 Carbon dioxide: 25 BUN/Cr: 9/0.7 INR: 1.14 Temp Pulse Resp BP Pulse Ox 36.5 C 90 13 127/58 H 94 02/26/19 15:25 02/26/19 15:25 02/26/19 15:25 02/26/19 15:25 02/26/19 15:25 O2 (L/minute) 1 Constitutional: obese, other (Alert and oriented x3, appears groggy) Eyes: PERRL, anicteric sclera, EOMI Ears, Nose, Mouth, Throat: moist mucous membranes, hearing normal, ears appear normal, no oral mucosal ulcers Cardiovascular: regular rate and rhythym, no murmur, rub, or gallop, No edema Peripheral Pulses: 2+: dorsalis-pedis (R), dorsalis-pedis (L) Respiratory: reduced air movement Gastrointestinal: soft, non-tender abdomen, no palpable masses, other ( Hypoactive bowel sounds) Genitourinary: no bladder fullness, no bladder tenderness Skin: warm, normal color, no rashes or abrasions, no fluctuance, no induration, No mottled Musculoskeletal: pain with ROM (Postoperative surgical pain noted) Neurologic: AAOx3, sensation intact bilaterally, CN II-XII Intact Psychiatric: interacting appropriately, not anxious, not encephalopathic, thought process linear Lymph, Heme, Immunologic: no cervical LAD, no supraclavicular LAD Lab Data & Imaging Review 02/26/19 04:50 02/26/19 04:50 WBC 12.77 10^3/uL (3.80-9.50) H 02/26/19 04:50 RBC 4.30 10^6/uL (4.18-5.33) 02/26/19 04:50 Hgb 12.7 g/dL (12.6-16.3) 02/26/19 04:50 Hct 39.1 % (38.0-47.0) 02/26/19 04:50 MCV 90.9 fL (81.5-99.8) 02/26/19 04:50 MCH 29.5 pg (27.9-34.1) 02/26/19 04:50 MCHC 32.5 g/dL (32.4-36.7) 02/26/19 04:50 RDW 14.4 % (11.5-15.2) 02/26/19 04:50 Plt Count 251 10^3/uL (150-400) 02/26/19 04:50 MPV 9.7 fL (8.7-11.7) 02/26/19 04:50 Neut % (Auto) 75.0 % (39.3-74.2) H 02/26/19 04:50 Lymph % (Auto) 13.9 % (15.0-45.0) L 02/26/19 04:50 [place] % (Auto) 10.0 % (4.5-13.0) 02/26/19 04:50 Eos % (Auto) 0.2 % (0.6-7.6) L 02/26/19 04:50 Baso % (Auto) 0.4 % (0.3-1.7) 02/26/19 04:50 Nucleat RBC Rel Count 0.0 % (0.0-0.2) 02/26/19 04:50 Absolute Neuts (auto) 9.57 10^3/uL (1.70-6.50) H 02/26/19 04:50 Absolute Lymphs (auto) 1.77 10^3/uL (1.00-3.00) 02/26/19 04:50 Absolute Monos (auto) 1.28 10^3/uL (0.30-0.80) H 02/26/19 04:50 Absolute Eos (auto) 0.03 10^3/uL (0.03-0.40) 02/26/19 04:50 Absolute Basos (auto) 0.05 10^3/uL (0.02-0.10) 02/26/19 04:50 Absolute Nucleated RBC 0.00 10^3/uL (0-0.01) 02/26/19 04:50 Immature Gran % 0.5 % (0.0-1.1) 02/26/19 04:50 Immature Gran # 0.07 10^3/uL (0.00-0.10) 02/26/19 04:50 PT 14.1 SEC (12.0-15.0) 02/25/19 07:22 INR 1.14 (0.83-1.16) 02/25/19 07:22 APTT 27.7 SEC (23.0-38.0) 02/25/19 07:22 Sodium 136 mEq/L (135-145) 02/26/19 04:50 Potassium 3.8 mEq/L (3.5-5.2) 02/26/19 04:50 Chloride 102 mEq/L (97-110) 02/26/19 04:50 Carbon Dioxide 25 mEq/l (22-31) 02/26/19 04:50 Anion Gap 9 mEq/L (6-14) 02/26/19 04:50 BUN 9 mg/dL (7-23) 02/26/19 04:50 Creatinine 0.7 mg/dL (0.6-1.0) 02/26/19 04:50 Estimated GFR > 60 02/26/19 04:50 Glucose 124 mg/dL (70-100) H 02/26/19 04:50 POC Glucose 158 mg/dL (70-100) H 02/26/19 12:08 Calcium 8.6 mg/dL (8.5-10.4) 02/26/19 04:50 Specimen Hemolysis 150 02/25/19 08:05 Patient ABO/Rh AB POSITIVE 02/19/19 15:07 Antibody Screen NEGATIVE 02/19/19 15:07 Assessment & Plan Plan: This is a 73-year-old female status post day 1 of TLIF of L3-L5 with reported somnolence today. Hospital Medicine has been asked to consult for this.Her last set of vital signs are the following: Blood pressure 127/58, heart rate 90 , respirations 13, 94% on 1 L oxygen, temperature 36.5 degrees. #Somnolence #Cam's Disease #Post-op pain #Diabetes #Hyperlipidemia #Hypothyroidism Plan: -I suspect her somnolence is a direct result of general anesthesia as well as receiving the Robaxin 3 times while here; I will discontinue Robaxin as well as Benadryl on her JAN and continue 1 bag of IV fluid -Checking TSH -She may continue her psychiatric medications including Zyprexa, Ativan, and Wellbutrin; she reports being on these medications for over a year -Instead of taking her usual dose of hydrocortisone 10 mg 3 times a day this has been increased status post surgery to 20 mg 3 times a day per the recommendation of her primary care doctor -Physical therapy to evaluate and treat patient We will continue to follow the patient as needed. Thank you for this consultation.
--- NOTE | 2019-02-26 18:11 | HOSPPROG ---
Hospitalist Progress Note Assessment/Plan: 73f s/p L3-5 fusion, history of [place]'s. Consulted for weakness, somnolence and lethargy. Had received robaxin 750mg x 3 last night. ROS unremarkable. Patient states her symptoms are improving - confirmed with RN. vitals ok AOx3 RRR, no MRG ECG with mild TWI A/P # lethargy, somnolence - suspect Robaxin, hold for now; trial of low dose Tramadol prn; hold benadryl - if not improving, will need further w/u; consider infectious workup; consider trial of IV steroids - recheck labs tomorrow # leukocytosis - recheck tomorrow # Cam's - continue hydrocortisone at double home dose for now # hypothyroid - TSH ok; cont synthroid Patient seen and examined. Discussed with Haley Lynne, CAPTAIN WAITER - I agree with her H&P. Objective: Vital Signs Temp Pulse Resp BP Pulse Ox 36.5 C 90 13 127/58 H 94 02/26/19 15:25 02/26/19 15:25 02/26/19 15:25 02/26/19 15:25 02/26/19 15:25 Laboratory Results 02/26/19 04:50 02/26/19 04:50 02/25/19 02/26/19 02/27/19 05:59 05:59 05:59 Intake Total 1525 1175 Output Total 1925 580 Balance -400 595 PT 14.1 SEC (12.0-15.0) 02/25/19 07:22 INR 1.14 (0.83-1.16) 02/25/19 07:22 ICD10 Worksheet Patient Problems: Problems Problem Status Onset Chronic cholecystitis without calculus Acute
--- NOTE | 2019-02-26 18:52 | CPEKG ---
Test Reason : OPEN Blood Pressure : / mmHG Vent. Rate : 083 BPM Atrial Rate : 083 BPM P-R Int : 171 ms QRS Dur : 083 ms QT Int : 355 ms P-R-T Axes : 020 015 083 degrees QTc Int : 418 ms Sinus rhythm Low voltage, precordial leads Nonspecific T abnormalities, anterior leads compared with 02/23/2013 anterior T-wave wave abnormalities are new Confirmed by Miranda Coffman ([id number]) on 02/26/2019 6:51:36 PM Referred By: Beverly Lynn Confirmed By:Miranda Coffman
[2019-02-26] MEDS: ESTRADIOL 1 MG TAB PO SCH (20:34)
[2019-02-26] MEDS: ATORVASTATIN CALCIUM 40 MG TAB PO SCH (20:35)
[2019-02-26] MEDS: OLANZapine 5 MG TAB PO SCH (20:35)
[2019-02-26] MEDS: LEVOTHYROXINE 112 MCG TAB PO SCH (20:36)
[2019-02-26] MEDS: traMADol 50 MG TAB PO PRN (23:17)
[2019-02-27 05:04] LABS: PLATELET COUNT 205 10^3/uL (150-400)
[2019-02-27] MEDS: ACETAMINOPHEN 500 MG TAB PO SCH ×3 (05:56→21:27)
[2019-02-27] MEDS: FLUDROCORTISONE ACETATE 0.1 MG TAB PO SCH (08:55)
[2019-02-27] MEDS: metFORMIN HCL 500 MG TAB PO SCH ×2 (08:55→17:46)
[2019-02-27] MEDS: buPROPion XL 150 MG TAB PO SCH (08:55)
[2019-02-27] MEDS: MULTIVITAMINS 1 EACH TAB PO SCH (08:56)
[2019-02-27] MEDS: SENNOSIDES/DOCUSATE SODIUM TAB PO SCH ×2 (08:56→19:56)
[2019-02-27] MEDS: GABAPENTIN 300 MG CAP PO SCH ×2 (08:56→19:57)
[2019-02-27] MEDS: HYDROCORTISONE 10 MG TAB PO SCH ×3 (08:56→17:46)
[2019-02-27] MEDS: ASCORBIC ACID 500 MG TAB PO SCH (08:56)
[2019-02-27] MEDS: CETIRIZINE 10 MG TAB PO SCH (08:57)
[2019-02-27] MEDS: ENOXAPARIN 40 MG/0.4 ML SYR SC SCH (08:58)
--- NOTE | 2019-02-27 09:17 | HOSPPROG ---
Hospitalist Progress Note Assessment/Plan: 73f s/p L3-5 fusion, history of [place]'s. Consulted for weakness, somnolence and lethargy. Had received robaxin 750mg x 3 last night. ROS unremarkable. Patient states her symptoms are improving - confirmed with RN. ECG with mild TWI A/P # Lethargy: related to Robaxin. Held benadryl #Leukocytosis: improved # [place] - continue hydrocortisone at double home dose for now -normotensive # hypothyroid - TSH ok; cont synthroid Subjective: slept well overnight. Less fatigued Objective: Vital Signs Temp Pulse Resp BP Pulse Ox 36.4 C 75 16 133/69 H 97 02/27/19 07:52 02/27/19 07:52 02/27/19 07:52 02/27/19 07:52 02/27/19 07:52 Laboratory Results 02/27/19 04:33 02/27/19 04:33 02/26/19 02/27/19 02/28/19 05:59 05:59 05:59 Intake Total 1525 1675 Output Total 1925 1610 Balance -400 65 PT 14.1 SEC (12.0-15.0) 02/25/19 07:22 INR 1.14 (0.83-1.16) 02/25/19 07:22 - Time Spent With Patient Time Spent with Patient: greater than 35 minutes Time Spent with Patient: Greater than 35 minutes spent on this patients care, greater than 50% of time spent counseling, educating, and coordinating care regarding the above mentioned plan. - Physical Exam Constitutional: no apparent distress Eyes: PERRL Ears, Nose, Mouth, Throat: moist mucous membranes Cardiovascular: regular rate and rhythym Respiratory: no respiratory distress Gastrointestinal: normoactive bowel sounds Skin: warm Musculoskeletal: full muscle strength ICD10 Worksheet Patient Problems: Problems Problem Status Onset Chronic cholecystitis without calculus Acute
--- NOTE | 2019-02-27 09:38 | NEUSURGPN ---
Date of Surgery: 02/25/19 Post Op Day: 2 Assessment/Plan: 73 yo female s/p TLIF at L3-L5 POD2 - Lethargic on 02/26- likely due to Robaxin. Robaxin now discontinued. Using Tramadol for pain relief. - pain control - Continue SARI drain x 1 - wear brace when out of bed - postop L-spine x-rays pending - PT/OT - Cam's disease, will double home dose of solu-cortef for 3 days per her product picker (20 mg po TID). Will resume home dose on 03/01 of 10 mg po TID - appreciate medicine following - Case management for discharge planning - SCDs/TEDs, Lovenox Patient seen by myself and Dr. Lynn. Subjective: Doing well this morning. Has back pain. No LE symptoms. Objective: Awake. Alert. PERRL. EOMI Facial expression symmetrical Muscle strength full at 5/5 except for right DF weakness at 4/5 Catheter Insertion Date: 02/25/19 - Physician Patient Seen by : Shane Neurosurgery Physical Exam - Vitals, I&O, Labs I and O 02/26/19 02/27/19 02/28/19 05:59 05:59 05:59 Intake Total 1525 1675 Output Total 1925 1610 Balance -400 65 Weight 74.843 kg Intake: Oral (ml) 725 1100 IV Intake (ml) 800 IV Infused (ml) 575 Ns 1,000 ml @ 75 mls/hr 575 IV CONT BRANDON Rx#: [id number] Output: Urine (ml) 1700 1390 Bedpan 450 Bedside Commode 900 Catheter 1700 40 Estimated Blood Loss (ml) 150 Emesis (ml) 0 SARI Drain Output (ml) 75 220 #1 Back John [place] 75 220 Other: Intake Quantity Yes Yes Sufficient Number of Voids Bedpan 1 Bedside Commode 2 Toilet 1 Bladder Scan Volume (ml) Catheter 721 Vital Signs Temp Pulse Resp BP Pulse Ox 36.4 C 75 16 133/69 H 97 02/27/19 07:52 02/27/19 07:52 02/27/19 07:52 02/27/19 07:52 02/27/19 07:52 Laboratory Results 02/27/19 04:33 02/27/19 04:33 ICD10 Worksheet Patient Problems: Problems Problem Status Onset Chronic cholecystitis without calculus Acute
[2019-02-27] MEDS: traMADol 50 MG TAB PO PRN ×3 (09:57→23:47)
[2019-02-27] MEDS: ONDANSETRON DISINTEGRATING 4 MG TAB PO PRN ×2 (10:48→15:23)
--- NOTE | 2019-02-27 16:24 | ASMTCMCOM ---
CM Note CM Note Notes: CM discussed with TERRY Garcia. Patient likely to discharge tomorrow, [facility] accepted and updated. CM to follow. D/C Plan: [facility] Date Signed: 02/27/2019 04:23 PM Electronically Signed By:Liberty Rodriguez
[2019-02-27] MEDS: OLANZapine 5 MG TAB PO SCH (19:57)
[2019-02-27] MEDS: LEVOTHYROXINE 112 MCG TAB PO SCH (19:57)
[2019-02-27] MEDS: ATORVASTATIN CALCIUM 40 MG TAB PO SCH (19:58)
[2019-02-27] MEDS: ESTRADIOL 1 MG TAB PO SCH (20:03)
[2019-02-27] MEDS: LORazepam 1 MG TAB PO PRN (22:15)
[2019-02-28] MEDS: ACETAMINOPHEN 500 MG TAB PO SCH ×3 (05:36→21:40)
--- NOTE | 2019-02-28 06:34 | NEUSURGPN ---
Date of Surgery: 02/25/19 Post Op Day: 3 Assessment/Plan: 73 yo female s/p TLIF at L3-L5 POD3 - pain control, suspect Jeffryaxin was causing lethargy, Using Tramadol for pain relief. - SARI drain x 1, remove tomorrow - wear brace when out of bed - postop L-spine x-rays pending - PT/OT - [place]'s disease, will double home dose of solu-cortef for 3 days per her agency director (20 mg po TID). Will resume home dose on 03/01 of 10 mg po TID - appreciate medicine following - Case management for discharge planning-plan for SNF tomorrow - SCDs/TEDs, Lovenox libertad Lynn. Subjective: doing well still with back pain. States she is mobilizing. THinks she needs one more day. Objective: VSS AAOx4 eomi, pearla MAEx4, 5/5= except right DF 4/5 SILT incision dressed, dry jpx1, 90 out Catheter Insertion Date: 02/25/19 - Physician Discussed Patient with : Shane Neurosurgery Physical Exam - Vitals, I&O, Labs I and O 02/27/19 02/28/19 03/01/19 05:59 05:59 05:59 Intake Total 1675 Output Total 1610 940 Balance 65 -940 Intake: Oral (ml) 1100 IV Infused (ml) 575 Ns 1,000 ml @ 75 mls/hr 575 IV CONT BRANDON Rx#: [id number] Output: Urine (ml) 1390 850 Bedpan 450 Bedside Commode 900 850 Catheter 40 SARI Drain Output (ml) 220 90 #1 Back John [place] 220 90 Other: Intake Quantity Yes Sufficient Number of Voids Bedpan 1 Bedside Commode 2 1 Toilet 1 1 Bladder Scan Volume (ml) Catheter 721 Vital Signs Temp Pulse Resp BP Pulse Ox 37.2 C 96 16 138/61 H 94 02/28/19 04:00 02/28/19 04:00 02/28/19 04:00 02/28/19 04:00 02/28/19 04:00 Laboratory Results 02/28/19 04:50 02/27/19 04:33 ICD10 Worksheet Patient Problems: Problems Problem Status Onset Chronic cholecystitis without calculus Acute
[2019-02-28] MEDS: ENOXAPARIN 40 MG/0.4 ML SYR SC SCH (08:37)
[2019-02-28] MEDS: HYDROCORTISONE 10 MG TAB PO SCH ×3 (08:38→18:44)
[2019-02-28] MEDS: SENNOSIDES/DOCUSATE SODIUM TAB PO SCH ×2 (08:38→21:41)
[2019-02-28] MEDS: GABAPENTIN 300 MG CAP PO SCH ×2 (08:38→21:41)
[2019-02-28] MEDS: buPROPion XL 150 MG TAB PO SCH (08:38)
[2019-02-28] MEDS: ASCORBIC ACID 500 MG TAB PO SCH (08:38)
[2019-02-28] MEDS: metFORMIN HCL 500 MG TAB PO SCH ×2 (08:38→18:43)
[2019-02-28] MEDS: MULTIVITAMINS 1 EACH TAB PO SCH (08:39)
[2019-02-28] MEDS: FLUDROCORTISONE ACETATE 0.1 MG TAB PO SCH (08:40)
[2019-02-28] MEDS: CETIRIZINE 10 MG TAB PO SCH (08:40)
--- NOTE | 2019-02-28 18:27 | HOSPPROG ---
Hospitalist Progress Note Assessment/Plan: 73f s/p L3-5 fusion, history of [place]'s. Consulted for weakness, somnolence and lethargy. Had received robaxin 750mg x 3 last night. ROS unremarkable. Patient states her symptoms are improving - confirmed with RN. ECG with mild TWI A/P # Lethargy: related to Robaxin. Held benadryl #Leukocytosis: improved # [place]'s: Will decrease hydrocortisone to 20mg TID; can observe since her to ensure tolerates. BP stable # hypothyroid - TSH ok; cont synthroid #Diet: regular #Deconditioning: PT We will cont to follow. Please call if questions Subjective: worked with PT yesterday, but weak today Objective: Vital Signs Temp Pulse Resp BP Pulse Ox 36.9 C 102 H 17 112/56 L 94 02/28/19 15:23 02/28/19 15:23 02/28/19 15:23 02/28/19 15:23 02/28/19 15:23 Laboratory Results 02/28/19 04:50 02/27/19 04:33 02/27/19 02/28/19 03/01/19 05:59 05:59 05:59 Intake Total 1675 200 Output Total 1610 940 50 Balance 65 -940 150 PT 14.1 SEC (12.0-15.0) 02/25/19 07:22 INR 1.14 (0.83-1.16) 02/25/19 07:22 - Time Spent With Patient Time Spent with Patient: greater than 35 minutes Time Spent with Patient: Greater than 35 minutes spent on this patients care, greater than 50% of time spent counseling, educating, and coordinating care regarding the above mentioned plan. - Physical Exam Constitutional: no apparent distress Eyes: PERRL Ears, Nose, Mouth, Throat: moist mucous membranes Cardiovascular: regular rate and rhythym Respiratory: no respiratory distress Gastrointestinal: normoactive bowel sounds Skin: warm Neurologic: AAOx3, CN II-XII Intact Psychiatric: interacting appropriately ICD10 Worksheet Patient Problems: Problems Problem Status Onset Chronic cholecystitis without calculus Acute
[2019-02-28] MEDS ORDERED: HYDROCORTISONE 10 MG TAB PO SCH ×3 (18:29→19:00)
[2019-02-28] MEDS: ATORVASTATIN CALCIUM 40 MG TAB PO SCH (21:40)
[2019-02-28] MEDS: ESTRADIOL 1 MG TAB PO SCH (21:40)
[2019-02-28] MEDS: OLANZapine 5 MG TAB PO SCH (21:41)
[2019-02-28] MEDS: LEVOTHYROXINE 112 MCG TAB PO SCH (21:41)
[2019-02-28] MEDS: LORazepam 1 MG TAB PO PRN (22:56)
[2019-03-01] MEDS: ACETAMINOPHEN 500 MG TAB PO SCH ×2 (05:54→13:34)
[2019-03-01 06:50] VITALS: BP 113/66
[2019-03-01] MEDS: metFORMIN HCL 500 MG TAB PO SCH (08:12)
[2019-03-01] MEDS: FLUDROCORTISONE ACETATE 0.1 MG TAB PO SCH (08:12)
[2019-03-01] MEDS: MULTIVITAMINS 1 EACH TAB PO SCH (08:13)
[2019-03-01] MEDS: buPROPion XL 150 MG TAB PO SCH (08:13)
[2019-03-01] MEDS: GABAPENTIN 300 MG CAP PO SCH (08:13)
[2019-03-01] MEDS: ENOXAPARIN 40 MG/0.4 ML SYR SC SCH (08:13)
[2019-03-01] MEDS: CETIRIZINE 10 MG TAB PO SCH (08:13)
[2019-03-01] MEDS: ASCORBIC ACID 500 MG TAB PO SCH (08:13)
[2019-03-01] MEDS: HYDROCORTISONE 10 MG TAB PO SCH ×2 (08:13→13:34)
--- NOTE | 2019-03-01 08:50 | NEUSURGPN ---
Assessment/Plan: 73 yo female s/p TLIF at L3-L5 POD3. post op lumbar films with stable appearing hardware. pt with some post operative lethargy improved. [place]'s disease. - pain control, suspect Robaxin was causing lethargy, Using Tramadol for pain relief, improved. - SARI drain x 1, remove today - wear brace when out of bed - PT/OT [place] disease - - cortef decreased to 10mg TID today as planned - - appreciate medicine following - Case management for discharge planning-plan for SNF today if medicine agrees. - SCDs/TEDs, Lovenox dw Dr. Lynn. Subjective: doing well back pain controlled. feels ready for discharge. . Objective: VSS AAOx4 eomi, pearla MAEx4, 03/15= except right DF 4/5 SILT incision dressed, dry jpx1, 80 out Catheter Insertion Date: 02/25/19 - Physician Discussed Patient with Dr.: Lynn Neurosurgery Physical Exam - Vitals, I&O, Labs I and O 02/28/19 03/01/19 03/02/19 05:59 05:59 05:59 Intake Total 1200 200 Output Total 940 80 600 Balance -940 1120 -400 Intake: Oral (ml) 1200 200 Output: Urine (ml) 850 600 Bedside Commode 850 Toilet 600 SARI Drain Output (ml) 90 80 #1 Back [place] 90 80 Other: Intake Quantity Yes Sufficient Number of Voids Bedside Commode 1 Toilet 1 1 1 Number of Stools Bedside Commode 1 Incontinence 1 Vital Signs Temp Pulse Resp BP Pulse Ox 36.7 C 83 18 113/66 94 03/01/19 06:48 03/01/19 06:48 03/01/19 06:48 03/01/19 06:48 03/01/19 06:48 Laboratory Results 03/01/19 04:24 02/27/19 04:33 ICD10 Worksheet Patient Problems: Problems Problem Status Onset Chronic cholecystitis without calculus Acute
[2019-03-01] MEDS: SENNOSIDES/DOCUSATE SODIUM TAB PO SCH (09:02)
--- NOTE | 2019-03-01 12:18 | PDIAF ---
- Diagnosis Diagnosis: lumbar spinal fusion Code Status: Full Code - Medication Management Discharge Medications: electronically signed and located in the Home Medication List. - Orders Services needed: Certified Formation Testing Operator, Physical Therapy, Occupational Therapy Diet Recommendation: no restrictions on diet Diet Texture: Regular Texture Diet Additional Instructions: 1. Follow up with Dr. Lynn in 2 weeks. [phone] 2. Wear brace when out of bed. Refrain from lifting more than 10 pounds and bending/twisting. 3. Avoid Ibuprofen, Motrin, Aleve, Advil as these inhibit the bone growth and fusion process. OK to take Tylenol 4. Ok to shower and get incision wet starting 02/28/19. 5. Call Dr. Lynn's office with any questions/concerns. - Follow Up Care Current Providers and Referrals: Beverly Lynn DO [Doctor of Osteopathy] - follow up in 2 weeks Flory Sofia MD [Primary Care Provider] -
--- NOTE | 2019-03-01 14:03 | ASMTLACE ---
LACE Length of stay for Answers: 4-6 days current admission Acuity / Level of Answers: Yes Care: Did the patient have an inpatient admission? Comorbidities - select Answers: Coronary Artery Disease all that apply Diabetes (uncontrolled or controlled) Opioid dependence / Chronic pain # of Emergency department Answers: 1-2 visits in the last 6 months Score: 15 Date Signed: 03/01/2019 02:03 PM Electronically Signed By:Charlene Valdovinos RN
--- NOTE | 2019-03-01 15:39 | HOSPPROG ---
Hospitalist Progress Note Assessment/Plan: 73f s/p L3-5 fusion, history of [place]'s. Consulted for weakness, somnolence and lethargy. Had received robaxin 750mg x 3 last night. ROS unremarkable. Patient states her symptoms are improving - confirmed with RN. ECG with mild TWI A/P # Lethargy: related to Robaxin. Held benadryl #Leukocytosis: improved # [place]: resume home dose hydrocortisone to 10mg TID. BP stable and asymptomatic # hypothyroid - TSH ok; cont synthroid #Diet: regular #Deconditioning: PT We will cont to follow. Please call if questions Subjective: worked with PT without dizziness Objective: Vital Signs Temp Pulse Resp BP Pulse Ox 36.7 C 83 18 113/66 94 03/01/19 06:48 03/01/19 06:48 03/01/19 06:48 03/01/19 06:48 03/01/19 06:48 Laboratory Results 03/01/19 04:24 02/27/19 04:33 02/28/19 03/01/19 03/02/19 05:59 05:59 05:59 Intake Total 1200 700 Output Total 977 12 8919 Balance -940 1120 -550 PT 14.1 SEC (12.0-15.0) 02/25/19 07:22 INR 1.14 (0.83-1.16) 02/25/19 07:22 - Time Spent With Patient Time Spent with Patient: greater than 25 minutes Time Spent with Patient: Greater than 25 minutes spent on this patients care, greater than 50% of time spent counseling, educating, and coordinating care regarding the above mentioned plan. - Physical Exam Constitutional: no apparent distress Eyes: PERRL Ears, Nose, Mouth, Throat: moist mucous membranes Cardiovascular: regular rate and rhythym Respiratory: no respiratory distress Gastrointestinal: normoactive bowel sounds Genitourinary: no bladder fullness Neurologic: CN II-XII Intact ICD10 Worksheet Patient Problems: Problems Problem Status Onset Chronic cholecystitis without calculus Acute
--- NOTE | 2019-03-06 13:54 | GDS ---
[f rep st] DISCHARGE SUMMARY ADMITTING DIAGNOSES: Lumbar stenosis, spondylolisthesis, and footdrop. DISCHARGE DIAGNOSES: Lumbar stenosis, spondylolisthesis, and footdrop. PROCEDURE PERFORMED: Transforaminal lumbar interbody fusion at L3-4, L4-5. CONSULTS: Physical and Occupational Therapy and Internal Medicine. HOSPITAL COURSE: The patient is a 73-year-old female with footdrop, secondary to severe stenosis at L3-4 and L4-5 with spondylolisthesis at L4-5. It was elected to proceed with surgical intervention w ith a transforaminal lumbar interbody fusion at L3-4 and L4-5. The patient underwent surgery by Dr. Beverly Lynn on February 25, 2019, without any complications. She was transferred to the floor for further observation and pain control. SARI drain was removed once output was diminished. Postoperative x-rays were completed, demonstrating hardware in good placemen t, Medicine was consulted for medical management with her history of Tyrrell's disease. Also postope ratively, patient was somewhat somnolent, which was likely due to the Robaxin use. The patient was seen and evaluated by Physical and Occupational therapy. Once her pain was controlle d, she was tolerating a diet, voiding without difficulty and medically stable, she was deemed suitabl e for discharge. She was discharged to home on March 01. DISCHARGE INSTRUCTIONS: Patient is to wear her brace whenever she is out of bed. She is to refrain from lifting more than 10 pounds and bending or twisting. She will follow up with Dr. Beverly wilder 2 weeks. /[id number]/MODL
== END 2019-03-01 16:05 | DRG 454 ==
LOC: F3N 07:05
PROVIDERS: ADMIT Neurological Surgery; ATTEND Neurological Surgery
DX: M43.16 Spondylolisthesis, lumbar region (principal); M47.16 Other spondylosis with myelopathy, lumbar region; E27.1 Primary adrenocortical insufficiency; M48.061 Spinal stenosis, lumbar region without neurogenic claudication; M47.896 Other spondylosis, lumbar region; E11.9 Type 2 diabetes mellitus without complications; E03.9 Hypothyroidism, unspecified; F43.21 Adjustment disorder with depressed mood; G89.29 Other chronic pain; M70.71 Other bursitis of hip, right hip; M70.72 Other bursitis of hip, left hip; Z79.84 Long term (current) use of oral hypoglycemic drugs; Z85.820 Personal history of malignant melanoma of skin
CPT/HCPCS: 97116-GP; 97161-GP; 97166-GO; 97530-GO; 97535-GO; C1713; J0690; J1580; J1650; J1720; J2370; J2704; J2780; J3010